=== PATIENT | male | born 1975 | race Caucasian/White ===

== ENCOUNTER 2022-04-17 21:50 | Outpatient (CLI) | payer OTHER | END 2022-04-17 21:51 | disposition critical access hospital (66) | LOC: EMS 21:50 | DX: R55 Syncope and collapse (principal); I95.9 Hypotension, unspecified; R00.0 Tachycardia, unspecified | CPT/HCPCS: A0425; A0427 ==

== ENCOUNTER 2022-04-17 22:13 | Emergency (ER) | payer OTHER ==
[2022-04-17] MEDS ORDERED: SODIUM CHLORIDE 0.9% 1,000 ML IV STA (22:45)
[2022-04-17 22:50] LABS: BASOPHILS % (AUTO) 0.6 %; EOSINOPHILS # (AUTO) 0.1 10^3/uL (0.0-0.7); EOSINOPHILS % (AUTO) 2.5 %; HCT - HEMATOCRIT 34.4 % (42.0-52.0); HGB - HEMOGLOBIN 11.4 g/dL (14.0-18.0); LYMPHOCYTES # (AUTO) 1.1 10^3/uL (1.5-3.5); LYMPHOCYTES % (AUTO) 23.2 %; MEAN CORPUSCULAR HGB CONC 33.1 g/dL (32.0-36.0); MEAN CORPUSCULAR VOLUME 90.5 fL (80.0-94.0); MEAN PLATELET VOLUME 9.5 fL (7.4-11.4); MONOCYTES # (AUTO) 0.3 10^3/uL (0.0-1.0); MONOCYTES % (AUTO) 6.1 %; NEUTROPHILS # (AUTO) 3.1 10^3/uL (1.5-6.6); NEUTROPHILS % (AUTO) 66.1 %; PLT - PLATELET COUNT 141 10^3/uL (130-450); RED CELL DISTRIBUTION WIDTH 14.3 % (12.0-15.0); WHITE BLOOD COUNT 4.8 x10^3/uL (4.8-10.8)
[2022-04-17 22:58] LABS: ALBUMIN 2.8 g/dL (3.2-5.5); ALBUMIN/GLOBULIN RATIO 0.8 (1.0-2.2); BILIRUBIN,TOTAL 0.6 mg/dL (0.2-1.0); CALCIUM 8.4 mg/dL (8.5-10.3); CREATININE 1.4 mg/dL (0.6-1.2); POTASSIUM 4.7 mmol/L (3.5-5.0); TOTAL PROTEIN 6.1 g/dL (6.7-8.2)
--- NOTE | 2022-04-18 00:07 | ED Physician Documentation ---
History of Present Illness - Stated complaint Stated Complaint: NEAR SYNCOPE, NECK PAIN - Chief complaint Chief Complaint: Neuro - History obtained from History obtained from: Patient - Additonal information Additional information: Patient is a 46-year-old noninsulin-dependent diabetic presenting for evaluation of a near syncopal episode that occurred this evening. Patient had just walked back from the bathroom which had a bowel movement and was feeling lightheaded and faint. He reports having had this happen to him in the past but this time his sister checked his blood pressure and noted that it was low and that his heart rate was fast prompting her to call 911.He reports he felt the symptoms for approximately 20 minutes until EMS arrived. EMS found his initial blood pressure to be in the 80s which improved to the 100s in route. He was given 200 mL of IV fluids prior to arrival. Patient reports having history of lower extremity wounds and has regular follow-up with the [facility] weekly. He also changes the dressing every 2 days. He recently stopped cephalexin which he had been on for several months. He reports that recent checks of the wounds have been looking well and he does not have concerns that they are getting infected again.He denies fever, chest pain, difficulty breathing, abdominal pain, headache. He currently has no complaints and feels back to his usual self. Review of Systems Constitutional: denies: Fever Nose: denies: Congestion Cardiac: denies: Chest pain / pressure Respiratory: denies: Dyspnea GI: denies: Abdominal Pain, Vomiting : denies: Dysuria Musculoskeletal: denies: Back pain Neurologic: denies: Headache PD PAST MEDICAL HISTORY - Present Medications Home Medications: Ambulatory Orders Medication Instructions Recorded Confirmed metFORMIN [Glucophage] 500 mg PO BIDWM 04/17/22 04/17/22 valACYclovir [Valtrex] 500 mg PO 04/17/22 - Allergies Allergies/Adverse Reactions: Allergies Allergy/AdvReac Type Severity Reaction Status Date / Time No Known Drug Allergies Allergy Verified 04/17/22 22:25 PD ED PE NORMAL - General General: Alert and oriented X 3, No acute distress, Well developed/nourished - HEENT HEENT: Atraumatic - Neck Neck: Supple, no meningeal sign, No bony TTP - Cardiac Cardiac: RRR, No murmur - Respiratory Respiratory: No respiratory distress, Clear bilaterally - Abdomen Abdomen: Soft, Non tender - Extremities Extremities: No tenderness to palpate - Neuro Neuro: Alert and oriented X 3, child and adolescent psychiatrist 2-12 intact, No motor deficit, No sensory deficit, Normal speech Results - Vitals Vitals: Vital Signs - 24 hr 04/17/22 04/17/22 04/18/22 22:19 22:26 00:15 Temperature 36.9 C Heart Rate 89 86 Heart Rate [ 88 Sitting] Heart Rate [ 98 Standing] Heart Rate [ 83 Supine] Respiratory 18 12 Rate Blood Pressure 200/112 H 180/120 H Blood Pressure 191/107 H [Sitting] Blood Pressure 138/96 H [Standing] Blood Pressure 193/111 H [Supine] O2 Saturation 100 100 04/18/22 00:24 Temperature Heart Rate Heart Rate [ Sitting] Heart Rate [ Standing] Heart Rate [ Supine] Respiratory 21 Rate Blood Pressure 159/95 H Blood Pressure [Sitting] Blood Pressure [Standing] Blood Pressure [Supine] O2 Saturation 100 Oxygen O2 Source Room air - EKG (time done) 2238 Rate: Rate (enter#) (80) Rhythm: NSR Ischemia: No: ST elevation c/w ischemia - Labs Labs: Laboratory Tests 04/17/22 04/17/22 22:41 22:41 WBC 4.8 RBC 3.80 L Hgb 11.4 L Hct 34.4 L MCV 90.5 MCH 30.0 MCHC 33.1 RDW 14.3 Plt Count 141 MPV 9.5 Neut # (Auto) 3.1 Lymph # (Auto) 1.1 L [place] # (Auto) 0.3 Eos # (Auto) 0.1 Baso # (Auto) 0.0 Absolute Nucleated RBC 0.00 Nucleated RBC % 0.0 Sodium 138 Potassium 4.7 Chloride 105 Carbon Dioxide 26 Anion Gap 7.0 BUN 40 H Creatinine 1.4 H Estimated GFR (MDRD) 54 L Glucose 267 H Calcium 8.4 L Total Bilirubin 0.6 AST 14 ALT 14 Alkaline Phosphatase 97 Total Protein 6.1 L Albumin 2.8 L Globulin 3.3 Albumin/Globulin Ratio 0.8 L PD Medical Decision Making - ED course Complexity details: reviewed results, re-evaluated patient, d/w patient ED course: Patient is a 46-year-old [id number] diabetic presenting for evaluation after near syncopal event. Patient has a normal neuro exam No history to suggest a stroke. He denies ever having symptoms of chest pain or difficulty breathing.This episode did occur after he had just had a bowel movement. He initially was hypotensive per EMS but has had elevated blood pressure readings here. CBC and chemistries were reviewed. No prior for comparison. Creatinine noted to be 1.4 which is not an unexpected finding given patient's history of diabetes.He does not appear septic. He has been asymptomatic here. Blood pressures remained elevated and when orthostatics were checked it appeared that he had a 60 point drop in his systolic from sitting up to standing. However when they rechecked his sitting it was significantly better than prior readings in the 150s.Patient reports that his blood pressure is usually in the normal range when he goes to his doctor's office. I do not think at this time that he needs medications for his blood pressure or acute lowering and recommend close follow-up with his PCP for blood pressure recheck.Patient is able to ambulate at discharge and is comfortable with plan. He is advised on concerning symptoms to return for. Departure - Departure Disposition: 01 Home, Self Care Clinical Impression: Near syncope, Elevated blood pressure reading Condition: Stable Instructions: ED Hypertension Poss, ED Near Syncope Unkn Comments: You were evaluated after a near syncopal event. Your EKG and labs were reviewed without significant findings. Your blood pressure has been elevated while in the emergency department and I do recommend you reach out to your primary care doctor soon as possible for close recheck and follow-up. If you have any worsening symptoms please consider return to the emergency department. Discharge Date/Time: 04/18/22 00:42
[2022-04-18 00:25] VITALS: BP 159/95
--- NOTE | 2022-04-18 01:09 | XRAY Report ---
PROCEDURE: Chest 1 View X-Ray INDICATIONS: weak TECHNIQUE: One view of the chest was acquired. COMPARISON: None. FINDINGS: Surgical changes and devices: None. Lungs and pleura: There is elevation of the right hemidiaphragm. No acute consolidation. No pleural effusions or pneumothorax. Mediastinum: Mediastinal contours appear normal. Heart size is normal. Bones and chest wall: No suspicious bony lesions. Overlying soft tissues appear unremarkable. IMPRESSION: 1. No acute cardiopulmonary disease. Reviewed by: Jean Paul Simms MD on 04/18/2022 1:17 AM [facility] Approved by: Jean Paul Simms MD on 04/18/2022 1:17 AM [facility] Station ID: [id number]
== END 2022-04-18 00:42 | disposition home or self-care (01) ==
LOC: ED 22:13
DX: R55 Syncope and collapse (principal); R03.0 Elevated blood-pressure reading, without diagnosis of hypertension; E11.9 Type 2 diabetes mellitus without complications; Z79.84 Long term (current) use of oral hypoglycemic drugs
CPT/HCPCS: 36415; 80053; 85025; 93005; 96360; 99284

== ENCOUNTER 2022-04-28 13:17 | Emergency (ER) | payer OTHER ==
[2022-04-28 19:18] LABS: BASOPHILS # (AUTO) 0.1 10^3/uL (0.0-0.1); BASOPHILS % (AUTO) 0.9 %; EOSINOPHILS # (AUTO) 0.2 10^3/uL (0.0-0.7); EOSINOPHILS % (AUTO) 3.4 %; HCT - HEMATOCRIT 36.7 % (42.0-52.0); LYMPHOCYTES # (AUTO) 1.3 10^3/uL (1.5-3.5); LYMPHOCYTES % (AUTO) 21.6 %; MEAN CORPUSCULAR HGB CONC 32.7 g/dL (32.0-36.0); MEAN CORPUSCULAR VOLUME 91.8 fL (80.0-94.0); MEAN PLATELET VOLUME 9.7 fL (7.4-11.4); MONOCYTES # (AUTO) 0.4 10^3/uL (0.0-1.0); MONOCYTES % (AUTO) 6.3 %; NEUTROPHILS # (AUTO) 3.9 10^3/uL (1.5-6.6); NEUTROPHILS % (AUTO) 66.9 %; PLT - PLATELET COUNT 156 10^3/uL (130-450); RED CELL DISTRIBUTION WIDTH 14.2 % (12.0-15.0); WHITE BLOOD COUNT 5.9 x10^3/uL (4.8-10.8)
[2022-04-28 19:26] LABS: ALBUMIN 3.3 g/dL (3.2-5.5); ALBUMIN/GLOBULIN RATIO 0.9 (1.0-2.2); BILIRUBIN,TOTAL 0.7 mg/dL (0.2-1.0); CREATININE 1.8 mg/dL (0.6-1.2); POTASSIUM 5.7 mmol/L (3.5-5.0)
--- NOTE | 2022-04-28 19:28 | ED Physician Documentation ---
History of Present Illness - Stated complaint Stated Complaint: LEG WEAKNESS - Chief complaint Chief Complaint: General - Additonal information Additional information: 46-year-old male comes to the emergency department for evaluation of increasing weakness. He does have a history of chronic pain in his low back. At baseline he reports that he ambulates very little but is typically able to transition between bed and commode or walk to the bathroom. He did go to physical therapy yesterday and thinks that he may have overdone it because today he has been unable to get out of bed without assistance and has fallen twice at home requiring a lift assist. He feels that he is unable to care for himself at this time and is hoping that we can place him in a penitentiary facility until he regains his strength. Patient has no recent fevers. Denies saddle anesthesia or loss of bowel or bladder function. Patient is morbidly obese does have a history of diabetes for which she is on metformin only. He also has chronic venous stasis ulcers of bilateral lower extremities. He is followed by [facility] in [place]. Meds: Metformin 750 twice daily, valacyclovir 500 mg daily, daily multivitamin. Review of Systems Constitutional: denies: Fever, Chills Eyes: reports: Reviewed and negative Throat: reports: Reviewed and negative Cardiac: reports: Reviewed and negative Respiratory: reports: Reviewed and negative GI: reports: Reviewed and negative : reports: Reviewed and negative Musculoskeletal: reports: Back pain Neurologic: reports: Generalized weakness. denies: Focal weakness PD PAST MEDICAL HISTORY - Present Medications Home Medications: Ambulatory Orders Medication Instructions Recorded Confirmed metFORMIN [Glucophage] 500 mg PO BIDWM 04/17/22 04/17/22 valACYclovir [Valtrex] 500 mg PO 04/17/22 - Allergies Allergies/Adverse Reactions: Allergies Allergy/AdvReac Type Severity Reaction Status Date / Time No Known Drug Allergies Allergy Verified 04/28/22 13:24 PD ED PE EXPANDED - General General: Alert, Other (Morbidly obese) - Cardiac Cardiac: Regular Rate, Radial strong equal, Pedal strong equal, Cap refill < 2 sec. No: Murmur Present - Respiratory Respiratory: Clear to ausultation nestor. No: Distress, Labored - Abdomen Abdomen: Normal Bowel sounds. No: Tender to palpation - Extremities Extremities: Pedal Pulses Present, Other (Hemosiderin staining of bilateral lower extremities. There are some wraps in place) - Neuro Neuro: Alert and Oriented X 3, CNII-XII intact - GCS Eye Opening: Spontaneous Motor: Obeys Commands Verbal: Oriented Total: 15 Results - Vitals Vitals: Vital Signs - 24 hr 04/28/22 04/28/22 04/28/22 13:21 18:24 20:19 Temperature 36.4 C L Heart Rate 87 79 84 Respiratory 16 18 16 Rate Blood Pressure 133/87 H 178/102 H 133/98 H O2 Saturation 100 100 100 04/28/22 21:05 Temperature 36.4 C L Heart Rate 85 Respiratory 18 Rate Blood Pressure 148/75 H O2 Saturation 99 Oxygen O2 Source Room air - Labs Labs: Laboratory Tests 04/28/22 04/28/22 04/28/22 19:04 19:04 19:04 WBC 5.9 RBC 4.00 L Hgb 12.0 L Hct 36.7 L MCV 91.8 MCH 30.0 MCHC 32.7 RDW 14.2 Plt Count 156 MPV 9.7 Neut # (Auto) 3.9 Lymph # (Auto) 1.3 L [place] # (Auto) 0.4 Eos # (Auto) 0.2 Baso # (Auto) 0.1 Absolute Nucleated RBC 0.00 Nucleated RBC % 0.0 Sodium 140 Potassium 5.7 H Chloride 108 Carbon Dioxide 23 Anion Gap 9.0 BUN 59 H Creatinine 1.8 H Estimated GFR (MDRD) 40 L Glucose 194 H Calcium 9.0 Total Bilirubin 0.7 AST 13 ALT 12 Alkaline Phosphatase 97 Total Protein 7.0 Albumin 3.3 Globulin 3.7 Albumin/Globulin Ratio 0.9 L Lipase 32 TSH 2.21 - Rads (name of study) CT lumbar Radiology: Final report received (No acute traumatic injury or abnormality lumbar spine. Degenerative disc disease at L5-S1 as well as bilateral foraminal stenosis.) PD Medical Decision Making - ED course Complexity details: reviewed results, re-evaluated patient, considered differential, d/w patient, d/w family ED course: This is a 46-year-old male who has a history of diabetes as well as morbid obesity who presents to the emergency department with increasing general weakness and inability to care for himself at home. At baseline he is typically able to get out of bed and ambulate to the bathroom but has fallen 3 times in the last 24 hours as his legs just give out. He thinks that physical therapy yesterday worsened his clinical condition. Clinically there are no red flags such as saddle anesthesia, fevers, bowel or bladder incontinence. I did obtain a CBC that showed a mild anemia and no leukocytosis. Clinically history is not consistent with infection or spinal epidural abscess. His electrolytes were evaluated and I do note modest kidney injury with a BUN of 59 and a creatinine of 1.8. This is up mildly from the recent ED visit in which his BUN was 40 and 1.4 respectively. I do have a CK pending and patient has a been administered a liter of IV fluids. Repeat BMP is pending for the morning. However the degree of kidney dysfunction would not admit him to the hospital. I did obtain a CT of the lumbar spine that showed no acute fractures. We do note significant degenerative disc disease as well as neuroforaminal stenosis, not unexpected given age, obesity and chronic debilitation. Nursing staff was able to stand the patient at the bedside with a walker. He did require minimal assistance. He was also able to shuffle 1-2 steps. However the patient is quite adamant that he is unable to go home. He is invested in obtaining a home physical therapy/PT as well as home health which may be necessary. He would however prefer penitentiary facility or [facility] placement as his sister is increasingly unable to help care for him. I did discuss with the patient that he would likely be discharged tomorrow. He may require bedside commode. The likelihood of an adult Family home or penitentiary placement being available is very unlikely At this time he will board overnight in the emergency department. Social work consult is pending. I have ordered PT OT. Departure - Departure Clinical Impression: Generalized weakness, Debilitated patient, Morbid obesity Type 2 diabetes mellitus Qualifiers: Diabetes mellitus roasterman insulin use: without fdc use Diabetes mellitus complication status: with kidney complications Diabetes mellitus complication detail: with chronic kidney disease Chronic kidney disease stage: unspecified stage Qualified Code(s): E11.22 - Type 2 diabetes mellitus with diabetic chronic kidney disease
[2022-04-28] MEDS ORDERED: SODIUM CHLORIDE 0.9% 1,000 ML IV STA ×2 (19:30→21:26)
--- NOTE | 2022-04-28 20:11 | CT Report ---
PROCEDURE: LUMBAR SPINE WO INDICATIONS: increased weakness BLE TECHNIQUE: Noncontrast 3 mm thick sections acquired from the T12 level to the sacrum. Sagittal and coronal refo rmats were constructed. For radiation dose reduction, the following was used: automated exposure co ntrol, adjustment of mA and/or kV according to patient size. COMPARISON: None. FINDINGS: Image quality: Excellent. Bones: There is normal bony alignment. No acute vertebral body compression fractures. No suspiciou s lytic or blastic bony lesions. Central spinal caliber is of normal overall caliber. No pars defec ts. Multilevel degenerative changes. Disc disease is seen at multiple levels. Mild leftward curvatur e of the lumbar spine. Discs: The discs are not well visualized on CT. L5-S1 has disc space narrowing and a diffuse disc bul ge causing moderate bilateral foraminal stenosis. Soft tissues: No retroperitoneal masses or hematomas. Visualized aorta is normal in caliber. IMPRESSION: 1. No acute traumatic abnormality of the lumbar spine. 2. Degenerative disc disease at L5-S1 as detailed above with bilateral foraminal stenosis. 3. The discs and spinal cord are not well evaluated with CT. Recommend MRI if clinically indicated. Reviewed by: Lionel Benoit on 04/28/2022 8:09 PM PST Approved by: Lionel Benoit on 04/28/2022 8:09 PM PST Station ID: [id number]
[2022-04-28] MEDS ORDERED: ACETAMINOPHEN 500 MG TABLET PO PRN (21:17)
[2022-04-29] MEDS ORDERED: LOPERAMIDE 2 MG CAPSULE PO STA (00:30)
[2022-04-29] MEDS ORDERED: IBUPROFEN 400 MG TABLET PO STA (04:43)
[2022-04-29] MEDS: PANTOPRAZOLE 40 MG TABLET PO SCH (06:35)
[2022-04-29 07:24] LABS: CALCIUM 8.1 mg/dL (8.5-10.3); CREATININE 1.7 mg/dL (0.6-1.2); POTASSIUM 5.7 mmol/L (3.5-5.0)
[2022-04-29] MEDS: ENOXAPARIN 40 MG/0.4 ML SYRINGE SUBQ SCH (10:11)
--- NOTE | 2022-04-29 11:25 | ED Physician Documentation ---
ED Addendum - Addendum Addendum: 04/29/22 11:24 46-year-old gentleman continues to board in the emergency department. In brief he is a morbidly obese diabetic who is severely deconditioned and now unable to get out of bed and ambulate to the bathroom. He is requesting nursing home or home health evaluation. I have reviewed the patient's vital signs over the last 24 hours with no worrisome abnormalities noted. We did repeat his labs today given the findings of an elevated BUN and creatinine yesterday. I suspect that he has some mild chronic kidney disease as fluids failed to improve the numbers. However this would be consistent with his history of diabetes and morbid obesity. He was seen by PT and OT who did make the recommendation for nursing home facility placement. [facility] is continuing to work with [facility] to see if a bed would become available. However it is likely that no nursing home facility bed will be available and at that point the patient would be discharged home with home health recommendations. The patient is aware of the status and plans and has been agreeable thus far. 04/29/22 19:50
[2022-04-29] MEDS ORDERED: IBUPROFEN 600 MG TABLET PO PRN (13:26)
[2022-04-29] MEDS: LOPERAMIDE ORAL SOLUTION 2 MG/15 ML UDC PO PRN (15:08)
[2022-04-29] MEDS: metFORMIN 500 MG TABLET PO SCH ×2 (15:08→20:47)
[2022-04-30] MEDS: PANTOPRAZOLE 40 MG TABLET PO SCH (06:37)
[2022-04-30] MEDS: ENOXAPARIN 40 MG/0.4 ML SYRINGE SUBQ SCH (08:48)
[2022-04-30] MEDS: metFORMIN 500 MG TABLET PO SCH ×2 (08:49→21:05)
--- NOTE | 2022-04-30 08:53 | ED Physician Documentation ---
ED Addendum - Addendum Addendum: 04/30/22 08:49 The patient was awake and conversant as I checked him on this morning. He had had breakfast. He denies any new symptoms. He states he has baseline degree of neuropathy numbness in both legs from the shins down. He is able to move his legs well but states he has poor strength chronically and more so recently. He states his back pain is okay at this time. He wanted to ensure that we prescribed his daily valacyclovir prophylactic for cold sores in the eye they had had in the past. I added that to his orders. Other medications are the same. He question the need for the Lovenox low-dose and explained its commonly done in the ER for people are nonambulatory to prevent clots. He states he does not move much at home either and does not get clots there. I suggested perhaps at least aspirin a day at home. Social work is trying to arrange home health aides and physical therapy. He did get a PT evaluation that stated the need for rehab alf or home health with PT and were awaiting insurance verification I believe. On exam he has symmetric sensation in the thighs and upper lower legs. He has movement in both legs in all movements with some general weakness. He has decreased sensation from the mid lower legs down which she states is baseline for him in both legs. He denies any perineal numbness nor incontinence and I did not specifically check sensation in those areas.
[2022-04-30] MEDS: valACYclovir 500 MG TABLET PO SCH (08:55)
[2022-04-30] MEDS: IBUPROFEN 600 MG TABLET PO SCH ×3 (11:44→21:05)
[2022-05-01] MEDS: PANTOPRAZOLE 40 MG TABLET PO SCH (06:37)
[2022-05-01] MEDS: IBUPROFEN 600 MG TABLET PO SCH ×2 (06:37→14:00)
[2022-05-01] MEDS: LOPERAMIDE ORAL SOLUTION 2 MG/15 ML UDC PO PRN (09:08)
[2022-05-01] MEDS: ENOXAPARIN 40 MG/0.4 ML SYRINGE SUBQ SCH (09:08)
[2022-05-01] MEDS: metFORMIN 500 MG TABLET PO SCH (09:08)
[2022-05-01] MEDS: valACYclovir 500 MG TABLET PO SCH (09:08)
[2022-05-01] MEDS ORDERED: LOPERAMIDE 2 MG CAPSULE PO PRN (09:50)
[2022-05-01] MEDS ORDERED: LOPERAMIDE 2 MG CAPSULE PO STA (10:08)
--- NOTE | 2022-05-01 13:56 | ED Physician Documentation ---
ED Addendum - Addendum Addendum: 05/01/22 13:54 The patient's insurance declined placement at a correction or rehab. They did apparently approve home health. Social work has set up for home health to include OT, PT, basic bath and hygiene care as well as nursing visits. The patient is accepting of this as the best alternative available. He states he has someone that can come and give him a ride that would be available after 2 PM so sometime this afternoon. The patient did not have any particular complain ts this morning when I talked with them. He did have some loose stool and [facility] at [facility] that had been ordered as needed. Disposition: The patient discharged home in stable condition. Diagnoses: 1. Diabetes with neuropathy 2. Elevated BMI 3. Weakness with deconditioning
[2022-05-01 14:01] VITALS: BP 141/83
== END 2022-05-01 14:14 | disposition home or self-care (01) ==
LOC: EDUNIT# → ED 13:17
DX: R53.1 Weakness (principal); E11.22 Type 2 diabetes mellitus with diabetic chronic kidney disease; E11.40 Type 2 diabetes mellitus with diabetic neuropathy, unspecified; N18.9 Chronic kidney disease, unspecified; Z79.84 Long term (current) use of oral hypoglycemic drugs; E66.01 Morbid (severe) obesity due to excess calories
CPT/HCPCS: 36415; 72131; 80048; 80053; 82550; 83690; 84443; 85025; 96372; 99284; A9270; J1650

== ENCOUNTER 2023-09-05 14:49 | Outpatient (CLI) | payer OTHER | END 2023-09-05 23:59 | disposition short-term general hospital (02) | LOC: EMS 14:49 | DX: I89.0 Lymphedema, not elsewhere classified (principal); R39.89 Other symptoms and signs involving the genitourinary system; R23.8 Other skin changes; H53.8 Other visual disturbances; E11.319 Type 2 diabetes mellitus with unspecified diabetic retinopathy without macular edema; Z79.4 Long term (current) use of insulin; Z89.512 Acquired absence of left leg below knee; Z74.01 Bed confinement status | CPT/HCPCS: A0425; A0429 ==